=== PATIENT | female | born 1950 | race Asian ===

== ENCOUNTER 2016-09-21 07:22 | Day surgery (SDC) | payer BC, MEDICARE ==
[~2016-09-21] VITALS: Ht 152.4 cm; Wt 62.2 kg
== END 2016-09-21 10:45 | disposition home or self-care (01) ==
LOC: RAD.S 07:22
PROC: 0JPT3XZ Removal of Tunneled Vascular Access Device from Trunk Subcutaneous Tissue and Fascia, Percutaneous Approach (ICD-10-PCS; principal; 2016-09-21)
PROC: 0JH63XZ Insertion of Tunneled Vascular Access Device into Chest Subcutaneous Tissue and Fascia, Percutaneous Approach (ICD-10-PCS; principal; 2016-09-21)
DX: Z43.6 Encounter for attention to other artificial openings of urinary tract (principal); N18.6 End stage renal disease; Z79.899 Other long term (current) drug therapy; Z79.52 Long term (current) use of systemic steroids

== ENCOUNTER 2016-09-23 09:25 | Day surgery (SDC) | payer BC, MEDICARE ==
[~2016-09-23] VITALS: Ht 152.4 cm
== END 2016-09-23 12:24 | disposition home or self-care (01) ==
LOC: RAD.S 09:25 → EDSTATUS 11:00 → RAD.S 12:24
PROC: 05WY33Z Revision of Infusion Device in Upper Vein, Percutaneous Approach (ICD-10-PCS; principal; 2016-09-23)
DX: T82.41XA Breakdown (mechanical) of vascular dialysis catheter, initial encounter (principal); N18.6 End stage renal disease; Z79.899 Other long term (current) drug therapy; Z79.52 Long term (current) use of systemic steroids